=== PATIENT | male | born 1950 | race Caucasian/White ===

== ENCOUNTER → 2016-08-05 | Outpatient (CLI) | payer MEDICARE ==
[~2016-08-05] MED LIST: ACID CONTROL20 MG PO; ALDACTONE 25MG25 MG PO; ASPIR 8181 MG PO; ASPIR-LOW81 MG PO; CAPOTEN PO; COREG 12.5MG12.5 MG PO; COREG12.5 MG PO; FAMOTIDINE20 MG PO; FISH OIL 1,0001 EAC5 PO; IMDUR ER TAB 6060 MG PO; ISORDIL TAB 3030 MG PO; LEVAQUIN500 MG PO; LISINOPRIL40 MG PO; LOVAZA1 GM PO; NITROSTAT0.4 MG SL; PLAVIX 75 MG TA75 MG PO; PLAVIX75 MG PO; RANEXA500 MG PO; SPIRONOLACTONE25 MG PO; TYLENOL W/CODEIN1 E1 PO; VIT D3 PO; VITAMIN D 11000 UNIT PO; ZOCOR 40 MG TAB40 MG PO; ZOCOR40 MG PO
== END ==
LOC: LAB 07:08
PROVIDERS: Internal Medicine Nephrology
DX: N18.3 Chronic kidney disease, stage 3 (moderate) (principal); E78.5 Hyperlipidemia, unspecified; R73.02 Impaired glucose tolerance (oral)
CPT/HCPCS: 36415; 80053; 80061; 82043; 82570; 83036

== ENCOUNTER → 2020-06-01 | Outpatient (CLI) | payer MEDICARE ==
[2020-06-02 10:14] LABS: CREATININE, URINE 122.1 mg/dL (Not Estab.)
== END ==
LOC: LAB 07:07
PROVIDERS: Internal Medicine Nephrology
DX: E11.22 Type 2 diabetes mellitus with diabetic chronic kidney disease (principal); N18.30 Chronic kidney disease, stage 3 unspecified
CPT/HCPCS: 36415; 80053; 80061; 82043; 82570; 83036

== ENCOUNTER → 2020-10-06 | Outpatient (CLI) | payer MEDICARE ==
[2020-10-07 09:13] LABS: CREATININE, URINE 233.7 mg/dL (Not Estab.)
== END ==
LOC: LAB 06:50
PROVIDERS: Internal Medicine Nephrology
DX: E11.22 Type 2 diabetes mellitus with diabetic chronic kidney disease (principal); N18.30 Chronic kidney disease, stage 3 unspecified
CPT/HCPCS: 36415; 80053; 82043; 82570; 83036

== ENCOUNTER → 2021-02-21 | Outpatient (CLI) | payer MEDICARE ==
[2021-02-22 10:14] LABS: CREATININE, URINE 140.2 mg/dL (Not Estab.)
== END ==
LOC: LAB 07:09
PROVIDERS: Internal Medicine Nephrology
DX: Z13.29 Encounter for screening for other suspected endocrine disorder (principal); N18.32 Chronic kidney disease, stage 3b; E11.22 Type 2 diabetes mellitus with diabetic chronic kidney disease
CPT/HCPCS: 36415; 80053; 80061; 82043; 82570; 83036; 84443

== ENCOUNTER → 2021-06-28 | Outpatient (CLI) | payer MEDICARE ==
[2021-06-29 12:15] LABS: CREATININE, URINE 166.6 mg/dL (Not Estab.)
== END ==
LOC: LAB 06:54
PROVIDERS: Internal Medicine Nephrology
DX: E11.9 Type 2 diabetes mellitus without complications (principal)
CPT/HCPCS: 36415; 80053; 82043; 82570; 83036

== ENCOUNTER → 2021-10-30 | Outpatient (CLI) | payer MEDICARE ==
[2021-10-31 09:14] LABS: CREATININE, URINE 213.6 mg/dL (Not Estab.)
== END ==
LOC: LAB 07:34
PROVIDERS: Internal Medicine Nephrology
DX: E11.9 Type 2 diabetes mellitus without complications (principal)
CPT/HCPCS: 36415; 80053; 82043; 82570; 83036

== ENCOUNTER 2021-11-28 15:14 | Emergency (ER) | payer MEDICARE ==
[2021-11-28 16:29] LABS: HEMOGLOBIN 14.9 gm/dl (14.0-17.5); RED BLOOD COUNT 4.51 M/UL (4.20-5.50); WHITE BLOOD COUNT 10.8 K/UL (4.5-11.0)
== END 2021-11-28 21:27 | disposition home or self-care (01) ==
LOC: ER1 15:14
PROVIDERS: Physician Assistant
DX: R33.9 Retention of urine, unspecified (principal); I13.10 Hypertensive heart and chronic kidney disease without heart failure, with stage 1 through stage 4 chronic kidney disease, or unspecified chronic kidney disease; N18.30 Chronic kidney disease, stage 3 unspecified; E11.22 Type 2 diabetes mellitus with diabetic chronic kidney disease; Z79.84 Long term (current) use of oral hypoglycemic drugs; Z95.1 Presence of aortocoronary bypass graft
CPT/HCPCS: 51702; 80053; 81001; 85025; 99284